=== PATIENT | male | born 1960 | race Caucasian/White ===

== ENCOUNTER 2022-04-14 02:14 | Inpatient (IN) | payer BC ==
[~2022-04-14] VITALS: Ht 177.8 cm; Wt 100.2 kg
--- NOTE | 2022-04-14 02:25 | NUR ---
seen and examined by Dr. Villaseñor IV SL on L hand 20g noted. EKG noted
[2022-04-14] MEDS ORDERED: NITROGLYCERIN OINT 1 GM PACKET TP ONE ×2 (02:30→02:34)
[2022-04-14 02:35] VITALS: BP 123/70
--- NOTE | 2022-04-14 02:44 | NUR ---
amanda collected sent to lab.
[2022-04-14 02:53] LABS: CARBON DIOXIDE 26 mmol/L (21-32); CHLORIDE 105 mmol/L (98-107); CREATININE 1.4 mg/dL (0.6-1.3); GLUCOSE 124 mg/dL (74-106); POTASSIUM 3.7 mmol/L (3.5-5.1); UREA NITROGEN, BLOOD 18 mg/dL (7-18)
[2022-04-14 03:06] LABS: ALANINE AMINOTRANSFERASE 45 U/L (16-63); ALKALINE PHOSPHATASE 88 U/L (50-136); ASPARTATE AMINOTRANSFERASE 15 U/L (15-37); BILIRUBIN,DIRECT 0.1 mg/dL (0.0-0.2); BILIRUBIN,TOTAL 0.3 mg/dL (0.2-1.0); TOTAL PROTEIN, SERUM 6.6 g/dL (6.4-8.2)
[2022-04-14 03:21] LABS: HEMATOCRIT 39.9 % (36.7-47.1); MEAN CORPUSCULAR HEMOGLOBIN 29.5 uug (23.8-33.4); MEAN CORPUSCULAR VOLUME 85.9 fL (73.0-96.2); PLATELET COUNT (AUTO) 251 K/uL (152-348)
--- NOTE | 2022-04-14 03:42 | NUR ---
Patient has been accepted by Dr Gibson
[2022-04-14] MEDS ORDERED: REMEDY ESSENTIAL ZINC PASTE 113 GM TP PRN (03:45)
[2022-04-14] MEDS ORDERED: ONDANSETRON 4 MG/2 ML VIAL IV PRN (03:45)
[2022-04-14] MEDS ORDERED: ACETAMINOPHEN 325 MG TABLET PO PRN (03:45)
[2022-04-14] MEDS ORDERED: MAGNESIUM HYDROXIDE 30 ML LIQUID UDC PO PRN (03:45)
--- NOTE | 2022-04-14 03:50 | NUR ---
called Johanna HERRING for Rm # for transfer, no room available yet at this time.
[2022-04-14] MEDS ORDERED: MORPHINE SULFATE 4 MG/1 ML DISP.SYRIN IV ONE (04:30)
[2022-04-14] MEDS ORDERED: MORPHINE SULFATE 4 MG/1 ML DISP.SYRIN ONE (04:36)
[2022-04-14] MEDS ORDERED: LISI10TA29 PO (04:52)
[2022-04-14] MEDS ORDERED: ASPI-866 PO (04:52)
[2022-04-14] MEDS ORDERED: ROSU10TA29 PO (04:52)
[2022-04-14] MEDS ORDERED: METO25TA6 PO (04:52)
--- NOTE | 2022-04-14 05:34 | NUR ---
Called 3rd floor for bed, no beds available at the moment
[2022-04-14] MEDS ORDERED: PANTOPRAZOLE SODIUM 40 MG TABLET.DR PO SCH (07:00)
--- NOTE | 2022-04-14 07:30 | NUR ---
Called tele floor for bed assignment, was told there are no beds at this time. Pt resting in gurney with eyes closed and no s/s of distress noted.
--- NOTE | 2022-04-14 08:10 | NUR ---
Pt is sitting on the gurney and eating breakfast, states he has no pain at this time. NAD noted.
--- NOTE | 2022-04-14 13:00 | NUR ---
Pt ate lunch, states he remains pain free. Still no tele beds available. Plan of care discussed with pt.
--- NOTE | 2022-04-14 16:00 | NUR ---
Pt was seen by toy packer .
--- NOTE | 2022-04-14 18:14 | NUR ---
Pt eloped. Pt stated he was tired of waiting in the emergency room. Pt has been a pending tele admission in the ER since previous shift. Pt stated he was told he would be going home by the rig hand when he came to see him earlier. Pt stated he is feeling much better and will follow up with his pmd. Saline lock removed with cath intact. Stressed follow up with pmd or return to ER for worsening s/s. Pt ambulated out of ER with steady gait.
[2022-04-14] MEDS ORDERED: ATORVASTATIN 20 MG TABLET PO SCH (21:00)
[2022-04-15] MEDS ORDERED: LISINOPRIL 10 MG TABLET PO SCH (09:00)
[2022-04-15] MEDS ORDERED: METOPROLOL TARTRATE 25 MG TABLET PO SCH (09:00)
[2022-04-15] MEDS ORDERED: ASPIRIN EC 81 MG TABLET.DR PO SCH (09:00)
== END 2022-04-14 18:14 | disposition left against medical advice (07) | DRG 302 ==
LOC: ER 02:17 → TRANSITION 12:14
PROVIDERS: ADMIT Nurse Practitioner Acute Care; ATTEND Nurse Practitioner Acute Care
DX: I25.110 Atherosclerotic heart disease of native coronary artery with unstable angina pectoris (principal); N17.0 Acute kidney failure with tubular necrosis; I25.2 Old myocardial infarction; E66.9 Obesity, unspecified; E78.5 Hyperlipidemia, unspecified; I10 Essential (primary) hypertension; Z87.891 Personal history of nicotine dependence; Z95.5 Presence of coronary angioplasty implant and graft; Z68.31 Body mass index [BMI] 31.0-31.9, adult; Z20.822 Contact with and (suspected) exposure to COVID-19
CPT/HCPCS: 36415; 71045; 83735; 84484; 85025; 93005; 93307; A4663; G0378; J2270